=== PATIENT | male | born 1960 | race Hispanic/Latino ===

== ENCOUNTER 2019-04-24 07:07 | Day surgery (SDC) | payer OTHER ==
[2019-04-16 17:06] LABS: EOSINOPHILS % (AUTO) 1.5 % (0.0-8.0); HEMATOCRIT 46.8 % (42-54); LYMPHOCYTES % (AUTO) 30.7 % (21.0-51.0); MEAN CORPUSCULAR HEMOGLOBIN 32.6 pg (27.0-33.0); MEAN CORPUSCULAR HGB CONC 34.3 g/dL (32.0-36.0); MEAN CORPUSCULAR VOLUME 94.8 fL (79-99); MONOCYTES % (AUTO) 6.3 % (3.0-13.0); NEUTROPHILS % (AUTO) 60.5 % (40.0-77.0); PLATELET COUNT (AUTO) 129 K/uL (130-400); RED BLOOD CELL COUNT(AUTO) 4.93 MIL/uL (4.50-6.20); RED CELL DISTRIBUTION WIDTH 13.8 % (11.0-15.5)
[2019-04-16 17:23] LABS: CREATININE 0.9 mg/dL (0.5-1.5); POTASSIUM 4.2 mmol/L (3.5-5.1)
[2019-04-17 15:04] VITALS: BP 173/91
--- NOTE | 2019-04-23 09:35 | NUR ---
LABS REPORTED AND FAXED ABNORMAL WBC TO DR. DENEEN AREVALO. SHE WILL INFORM DR. MCNALLY.
--- NOTE | 2019-04-23 10:37 | NUR ---
WBC INFORMED DR. MCNALLY OF ABNORMAL WBC. NO ORDERS RECEIVED. PROCEED WITH PLANNED PROCEDURE.
[~2019-04-24] VITALS: Ht 174 cm; Wt 111.0 kg
[2019-04-24] VITALS (14 sets, daily range): BP systolic 105–124; BP diastolic 56–79
[~2019-04-24 07:07] MED LIST: CEFAZOLIN SODIUM 1 GM VIAL IVP SCH; LOSA50TA64 PO; METF-444 PO
[2019-04-24] MEDS ORDERED: CEFAZOLIN SODIUM 1 GM VIAL ONE (08:22)
[2019-04-24] MEDS: SODIUM CHLORIDE 0.9% 1000ML 1,000 ML IV SCH ×2 (08:52→11:26)
[2019-04-24] MEDS ORDERED: LIDOCAINE PF 2% 5ML ABBOJECT ONE (09:46)
[2019-04-24] MEDS ORDERED: PROPOFOL 10 MG/ML 20ML VIAL IV ONE (09:46)
[2019-04-24] MEDS ORDERED: SUCCINYLCHOLINE 200MG/10ML SYR ONE (09:46)
[2019-04-24] MEDS ORDERED: FENTANYL CITRATE PF 50 MCG/1 ML 2ML VIAL ONE (09:47)
[2019-04-24] MEDS ORDERED: ROCURONIUM 10MG/1ML SYR 10 MG/ML ML ONE (09:47)
[2019-04-24] MEDS ORDERED: BUPIVACAINE/PF 0.25% 30ML VIAL IJ ONE (11:05)
[2019-04-24] MEDS ORDERED: GLYCOPYRROLATE 1 MG/5 ML SYRINGE ONE (11:22)
[2019-04-24] MEDS ORDERED: NEOSTIGMINE 5MG/5ML SYR IV ONE (11:22)
[2019-04-24] MEDS ORDERED: ONDANSETRON HCL 4 MG/2 ML VIAL ONE (11:23)
[2019-04-24] MEDS ORDERED: KETOROLAC TROMETHAMINE 30MG/ML ONE (11:23)
--- NOTE | 2019-04-24 12:45 | NUR ---
PATIENT ARRIVED PT BROUGHT TO DAY PATIENT VIA STRETCHER BY VALERIE SANTILLAN. PT AAOX3, RESPIRATIONS UNLABORED, VITAL SIGNS STABLE, DENIES ANY PAIN AT THIS TIME. DRESSING TO LOWER ABDOMEN IS DRY AND INTACT, NO DRAINAGE OR BLEEDING NOTED. SIDERAILS UP X2, BED IN LOWEST POSITION, CALL SANCHEZ IN REACH.
--- NOTE | 2019-04-24 13:10 | NUR ---
DISCHARGE INSTRUCTIONS INSTRUCTIONS PROVIDED TO SPOUSE REGARDING NEW PRESCRIPTION, FOLLOW UP APPOINTMENT, AND SIGNS/SYMPTOMS TO MONITOR FOR AND REPORT. PATIENT'S SPOUSE VERBALIZED UNDERSTANDING OF INSTRUCTIONS. PATIENT AND SPOUSE INSTRUCTED NOT TO REMOVE DRESSING UNTIL SEEN BY DR MCNALLY TOMORROW AT 9:15AM, BOTH VERBALIZED UNDERSTANDING.
--- NOTE | 2019-04-24 13:28 | NUR ---
PATIENT DISCHARGED FROM FACILITY VIA WHEELCHAIR AND ASSISTED INTO PRIVATE VEHICLE DRIVEN BY SPOUSE.
== END 2019-04-24 13:28 | disposition home or self-care (01) ==
LOC: DAH 07:07
PROVIDERS: ATTEND Surgery
DX: K42.9 Umbilical hernia without obstruction or gangrene (principal); E11.9 Type 2 diabetes mellitus without complications; I10 Essential (primary) hypertension; Z79.899 Other long term (current) drug therapy; Z79.84 Long term (current) use of oral hypoglycemic drugs; Z72.89 Other problems related to lifestyle; Z83.3 Family history of diabetes mellitus; Z82.3 Family history of stroke
CPT/HCPCS: 36415; 49585; 80048; 82948 ×2; 85025; A4215; A4221; A4222; A4223; A4450; A4452; A4606; A4663; C1781; J0330; J0690; J1885; J2001; J2405; J2704; J2710; J3010; J3490 ×2; J7030; J7120